=== PATIENT | male | born 1995 | race African-American/Black ===

== ENCOUNTER 2021-04-29 17:28 | Emergency (ER) | payer OTHER ==
[~2021-04-29] VITALS: Ht 177.8 cm; Wt 83.9 kg
[~2021-04-29 17:28] MED LIST: AMOXICILLIN500 M2 PO; HYDROCODONE BIT1 T11 PO; LEVOFLOXACIN500 MG PO; NKHM
[2021-04-29 19:47] VITALS: BP 132/94
== END 2021-04-30 00:59 | disposition home or self-care (01) ==
LOC: ED 17:28
DX: R05 Cough (principal); Z20.822 Contact with and (suspected) exposure to COVID-19; R07.89 Other chest pain; R09.81 Nasal congestion